=== PATIENT | female | born 1990 | race Hispanic/Latino ===

== ENCOUNTER 2020-08-03 23:15 | Emergency (ER) | payer OTHER ==
[~2020-08-03] VITALS: Ht 160 cm; Wt 102.1 kg
[2020-08-03] MEDS ORDERED: LIDOCAINE VISC 2% SOLN 15 ML UDC PO ONE (23:30)
[2020-08-03] MEDS ORDERED: MAGNESIUM/ALUMINUM/SIMETHICONE 30 ML UDC PO ONE (23:30)
[2020-08-03] MEDS ORDERED: DEXAMETHASONE SOD PHOS 10 MG/1 ML VIAL IM ONE (23:30)
[2020-08-03] MEDS ORDERED: LIDOCAINE VISC 2% SOLN 15 ML UDC ONE (23:41)
[2020-08-03] MEDS ORDERED: MAGNESIUM/ALUMINUM/SIMETHICONE 30 ML UDC ONE (23:42)
[2020-08-03] MEDS ORDERED: DEXAMETHASONE SOD PHOS INJ 4 MG/ML VIAL ONE (23:42)
--- NOTE | 2020-08-03 23:42 | Emergency Department Note ---
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 DENIES SOB, DENIES PREVIOUS ISSUES IN PAST WHEN EATING SHRIMP. PT HAS H/O ANXIETY BUT STATES "I GO TO THERAPY FOR THAT" . Historian: Patient Arrival Mode: Car Onset (how long ago): day(s) (1) Location: throat Quality: swelling Radiation: Reports non-radiation; Denies back, Denies neck, Denies extremity, Denies abdomen, Denies periumbilical, Denies flank, Denies proximal, Denies distal, Denies other Severity: mild Onset quality: sudden Duration (how long): day(s) (1) Timing of current episode: constant Progression: unchanged Context: Denies recent illness, Denies recent surgery, Denies recent immobilization, Denies recent travel, Denies trauma/injury, Denies new medications, Denies hx of DVT/PE, Denies non-compliance w/ medications, Denies other Relieving factors: none Exacerbating factors: none Associated symptoms: Denies denies other symptoms, Denies confusion, Denies chest pain, Denies cough, Denies diaphoresis, Denies fever/chills, Denies headaches, Denies loss of appetite, Denies malaise, Denies nausea/vomiting, Denies rash, Denies seizure, Denies shortness of breath, Denies syncope, Denies weakness, Denies other Treatments prior to arrival: none Past Medical/Family History Physician Review I have reviewed the patient's past medical and family history. Any updates have been documented here. Past Medical History Recent Fever: No Clinical Suspicion of Infectio: No New/Unexplained Change in Ment: No Past Medical History: None Past Surgical History: None Social History Smoking Cessation: Never Smoker Alcohol Use: None Review of Systems Review of Systems Constitutional: Reports no symptoms EENTM: Reports as per HPI Cardiovascular: Reports no symptoms Respiratory: Reports no symptoms Gastrointestinal: Reports no symptoms Genitourinary: Reports no symptoms Musculoskeletal: Reports no symptoms Integumentary: Reports no symptoms Neurological: Reports no symptoms Psychological: Reports no symptoms Endocrine: Reports no symptoms Hematological/Lymphatic: Reports no symptoms Physical Exam Related Data Allergies: Coded Allergies: Penicillins (Verified Allergy, Unknown, 08/03/20) Triage Vital Signs Vital Signs Date Time Temp Pulse Resp B/P (MAP) Pulse Ox O2 Delivery O2 Flow Rate FiO2 08/03/20 23:18 97.9 114 18 178/80 100 Room Air Vital signs reviewed: Yes Physical Exam CONSTITUTIONAL Constitutional: Present well-developed, Present well-nourished HENT HENT: Present normocephalic, Present atraumatic, Present oropharynx clear/moist, Present nose normal HENT L/R: Present left ext ear normal, Present right ext ear normal EYES Eyes: Reports PERRL, Reports conjunctivae normal NECK Neck: Present ROM normal, Present supple; Absent thyromegaly, Absent tracheal deviation PULMONARY Pulmonary: Present effort normal, Present breath sounds normal CARDIOVASCULAR Cardiovascular: Present regular rhythm, Present heart sounds normal, Present capillary refill normal, Present normal rate; Absent irregular rhythm GASTROINTESTINAL Abdominal: Present soft, Present nontender, Present bowel sounds normal; Absent distension, Absent tender, Absent guarding, Absent mass, Absent rebound, Absent hernia, Absent left CVA tenderness, Absent right CVA tenderness, Absent other GENITOURINARY Genitourinary: Present exam deferred SKIN Skin: Present warm, Present dry; Absent erythema, Absent pale, Absent rash, Absent jaundiced, Absent bruising, Absent lesion, Absent other MUSCULOSKELETAL Musculoskeletal: Present ROM normal; Absent edema, Absent deformity, Absent tenderness, Absent swelling, Absent o ther NEUROLOGICAL Neurological: Present alert, Present oriented x 3, Present no gross motor or sensory deficits; Absent DTRs normal, Absent cranial nerve deficit, Absent sensory deficit, Absent abnormal DTRs, Absent abnormal coordination, Absent abnormal gait, Absent weakness, Absent other PSYCHOLOGICAL Psychological: Present mood/affect normal, Present judgement normal Assessment & Plan Medical Decision Making MDM allergic reaction Reassessment Reassessment time: 23:42 Reassessment better Assessment & Plan Final Impression: (1) Acute allergic reaction Depart Disposition: HOME, SELF-CARE Last Vital Signs Date Time Temp Pulse Resp B/P (MAP) Pulse Ox O2 Delivery O2 Flow Rate FiO2 08/03/20 23:18 97.9 114 18 178/80 100 Room Air Medications in the ED Dexamethasone Sodium Phosphate 10 mg ONCE ONCE IM ; Start 08/03/20 at 23:30; Stop 08/03/20 at 23:35; Status DC Lidocaine HCl 10 ml ONCE ONCE PO ; Start 08/03/20 at 23:30; Stop 08/03/20 at 23:35; Status DC Magnesium Aluminum Silicate 30 ml ONCE ONCE PO ; Start 08/03/20 at 23:30; Stop 08/03/20 at 23:35; Status DC Lidocaine HCl 15 ml STK-MED ONCE .ROUTE ; Start 08/03/20 at 23:41; Stop 08/03/20 at 23:36; Status DC Dexamethasone Sodium Phosphate 12 mg STK-MED ONCE .ROUTE ; Start 08/03/20 at 23:42; Stop 08/03/20 at 23:36; Status DC Magnesium Aluminum Silicate 30 ml STK-MED ONCE .ROUTE ; Start 08/03/20 at 23:42; Stop 08/03/20 at 23:36; Status DC FERNANDO DE LEON MD Aug 03, 2020 23:42
[2020-08-03] MEDS ORDERED: PREDNISONE20 MG PO (23:43)
== END 2020-08-03 23:53 | disposition home or self-care (01) ==
LOC: FSED 23:30
DX: T78.1XXA Other adverse food reactions, not elsewhere classified, initial encounter (principal); J39.2 Other diseases of pharynx; F41.9 Anxiety disorder, unspecified
CPT/HCPCS: 99283; J1100